=== PATIENT | female | born 2005 | race Caucasian/White ===

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

== ENCOUNTER 2024-04-17 22:45 | Emergency (ER) | payer BC | END 2024-04-17 23:54 | LOC: EC 22:45 | CPT/HCPCS: 99283 ==

== ENCOUNTER → 2025-01-04 | Day surgery (SDC) | payer BC, OTHER ==
[2025-01-04 08:10] VITALS: BP 118/71; PULSE 68; RESP 16; TEMP 98
[2025-01-04] MEDS: SODIUM CHLORIDE 0.9% 1,000 ML IV SCH (08:13)
[2025-01-04] MEDS: IV FLUID CONTINUATION 1,000 ML IV ONE (08:14)
--- NOTE | 2025-01-04 19:40 | P.EPPROC ---
- EP Procedure Note Electrophysiology Procedure Note: Diagnosis Recurrent presyncope 12 EKG shows sinus rhythm normal [place] narrow QRS normal ST segments normal QT interval Tilt table test per protocol Baseline blood pressure 116/53 mmHg baseline heart rate 57 beats a minute Patient was tilted upright in angle of 70 degrees per protocol No signal change in blood pressure Increase in heart rate to about 100 bpm No symptoms noted Impression Normal twelve-lead EKG Increase in heart rate consistent with orthostatic intolerance but without any s ymptoms
== END ==
LOC: CATHEP 07:38
PROVIDERS: ATTEND Internal Medicine Clinical Cardiac Electrophysiology
DX: R55 Syncope and collapse (principal)
CPT/HCPCS: 81025; 93660